=== PATIENT | female | born 2000 | race Caucasian/White ===

== ENCOUNTER 2021-09-06 21:27 | Emergency (ER) | payer OTHER ==
[2021-09-06 21:31] VITALS: BP 124/80; PULSE 106; TEMP 98.1; BMI 19.3
[2021-09-06] MEDS ORDERED: IBUPROFEN 600 MG TABLET (FP) PO ONE ×2 (22:45→22:58)
== END 2021-09-06 23:53 | disposition home or self-care (01) ==
LOC: JER 21:27 → JERFT 21:27 → JER 23:53
DX: M75.21 Bicipital tendinitis, right shoulder (principal)
CPT/HCPCS: 73070-TC-RT-FY; 99284-25